=== PATIENT | female | born 1945 | race Caucasian/White ===

== ENCOUNTER 2019-01-13 09:23 | Day surgery (SDC) | payer MEDICARE ==
[2019-01-10 12:46] VITALS: BMI 23.3
[2019-01-13] MEDS ORDERED: Clindamycin/D5W 900 mg/50 ml Premix Bag ONE (11:11)
[2019-01-13 11:12] LABS: Hemoglobin 14.1 g/dL (12.0-16.0); Mean Corpuscular HGB CONC 32.8 g/dL (32.0-36.0); Mean Corpuscular Volume 91.4 fL (78.0-98.0); Mean Platelet Volume 9.4 fL (7.4-10.4); Platelet Count 220 thou/uL (130-400); RBC Distribution Width 12.4 % (11.5-14.5); Red Blood Cell (RBC) Count 4.69 mill/uL (4.20-5.40); White Blood Cell (WBC) Count 8.3 thou/uL (4.8-10.8)
[2019-01-13 11:36] LABS: Anion Gap 11 mmol/L (10-20); BUN (Urea Nitrogen) 20 mg/dL (9.8-20.1); Calc. Creatinine Clearance 75 mL/min (70-130); Calcium 9.6 mg/dL (7.8-10.44); Carbon Dioxide 26 mmol/L (23-31); Chloride 107 mmol/L (98-107); Estimated GFR-MDRD 84; Glucose 88 mg/dL (83-110); Potassium 3.8 mmol/L (3.5-5.1); Sodium 140 mmol/L (136-145)
[2019-01-13] MEDS ORDERED: Sodium Chloride 0.9% 0 ML ONE (12:30)
[2019-01-13] MEDS ORDERED: Fentanyl 100 MCG/2 ML VIAL ONE ×2 (13:30→14:08)
[2019-01-13] MEDS ORDERED: SUGAMMADEX SODIUM 500 MG/5 ML VIAL ONE (13:38)
[2019-01-13] MEDS ORDERED: Morphine 4 MG/ML VIAL ONE (14:44)
[2019-01-13] MEDS ORDERED: Acetaminophen/Codeine 30-300mg Tablet ONE (15:46)
--- NOTE | 2019-01-13 15:54 | EKG ---
Test Reason : PREOP Blood Pressure : / mmHG Vent. Rate : 067 BPM Atrial Rate : 067 BPM P-R Int : 156 ms QRS Dur : 080 ms QT Int : 414 ms P-R-T Axes : 051 031 042 degrees QTc Int : 437 ms Normal sinus rhythm Normal ECG Confirmed by BELINDA LOPEZ ([id number]) on 01/13/2019 3:53:47 PM Referred By: [email or web address] Confirmed By:BELINDA LOPEZ
--- NOTE | 2019-01-13 15:58 | OP ---
DATE OF PROCEDURE: 01/13/2019 WOOD DIE MAKER: Julianne Henderson PA-C PROCEDURE PERFORMED: Left L5-S1 far-lateral diskectomy. DESCRIPTION OF PROCEDURE: The patient was brought to the operating room and intubated. She was rolled in a prone position on gel-filled chest rolls. An incision was made exposing L5 and S1 on the left and the level was confirmed by x-ray. We performed left L5-S1 laminectomy and facetectomy. We identified left L5 and left S1. Beneath this, we found an extruded disk fragment that was removed in one large piece. It was compressive predominantly of S1 and slightly L5. A complete decompression of both left L5 and left S1 were achieved. The wound was then extensively irrigated. MAC hemostasis was secured. Vancomycin powder was applied and the wound was closed in anatomic layers. Job ID: [id number]
== END 2019-01-13 16:30 | disposition home or self-care (01) ==
LOC: SDC 09:23
PROVIDERS: ATTEND Neurological Surgery
PROC: 01NB0ZZ Release Lumbar Nerve, Open Approach (ICD-10-PCS; principal; 2019-01-13)
DX: M54.16 Radiculopathy, lumbar region (principal); E78.5 Hyperlipidemia, unspecified
CPT/HCPCS: 76000; 80048; 85027; 93005; 93010; J0690; J2270; J3010; J3370; J3490